=== PATIENT | female | born 1975 | race Caucasian/White ===

== ENCOUNTER 2023-02-21 08:58 | Outpatient (CLI) | payer MEDICARE | END 2023-02-21 08:59 | disposition home or self-care (01) | LOC: CSHMRI 08:58 | PROVIDERS: ATTEND Neurological Surgery | DX: M47.22 Other spondylosis with radiculopathy, cervical region (principal) | CPT/HCPCS: 72141 ==

== ENCOUNTER 2023-06-05 10:24 | Outpatient (CLI) | payer MEDICARE | END 2023-06-05 10:25 | disposition home or self-care (01) | LOC: CSHMRI 10:24 | PROVIDERS: ATTEND Neurological Surgery | DX: M51.34 Other intervertebral disc degeneration, thoracic region (principal) | CPT/HCPCS: 72146 ==